=== PATIENT | female | born 1945 | race Caucasian/White ===

== ENCOUNTER 2016-10-01 18:36 | Emergency (ER) | payer MEDICARE, OTHER ==
[~2016-10-01] VITALS: Ht 160 cm; Wt 70.0 kg
[~2016-10-01 18:36] MED LIST: CALC-587 PO; DIPH25CA84 PO; FISH1CAP59 PO; FLUT16SP12 EA NOSTRIL; GLUC100015 PO; LEVO88TA41 PO; MULT-798 PO; SIMV20TA89 PO; VIT1CAPS21 PO
[2016-10-01 18:46] VITALS: Ht 160 cm; Wt 70.0 kg
--- NOTE | 2016-10-01 19:23 | NUR ---
PROVIDER DR VIZCARRA IN TO SEE PATIENT.
[2016-10-01 19:25] LABS: BASOPHILS % (AUTO) 0.5 % (0-2); EOSINOPHILS % (AUTO) 0.2 % (0-4); HCT - HEMATOCRIT 42.2 % (36-46); HGB - HEMOGLOBIN 14.2 GM/DL (12-16); IMMATURE GRANULOCYTE # (AUTO) 0.02 T/MM3 (0.00-0.03); IMMATURE GRANULOCYTE % (AUTO) 0.3 % (0.0-0.5); LYMPHOCYTES # (AUTO) 2.2 T/MM3 (1-4.8); LYMPHOCYTES % (AUTO) 33.6 % (23-45); MEAN CORPUSCULAR HGB 31.3 UUG (26-34); MEAN CORPUSCULAR HGB CONC(MCHC 33.6 GM/DL (31-37); MEAN CORPUSCULAR VOLUME 93.2 UM3 (80-100); MONOCYTES # (AUTO) 0.4 T/MM3 (0-0.8); NEUTROPHILS #(AUTO)-ABSOLUTE 3.9 T/MM3 (1.8-7.7); NEUTROPHILS % (AUTO) 59.4 % (33-66); RED BLOOD COUNT 4.53 M/MM3 (4.00-5.20); WBC - WHITE BLOOD COUNT 6.5 T/MM3 (4.5-11.0)
--- NOTE | 2016-10-01 19:28 | NUR ---
ORGANIC EXTRACTIONS TECHNICIAN IN ROOM TO DRAW BLOOD.
[2016-10-01] MEDS ORDERED: CALC-191 PO (19:30)
--- NOTE | 2016-10-01 19:31 | ERPDOC ---
Departure Disposition Decision Date: Oct 01, 2016 Disposition Decision Time: 20:49 Disposition: 01 DISCHARGED HOME, SELF-CARE Impression Impression Impression: Primary Impression: Exertional dyspnea Severity: Severe Condition: Improved Seen By: Physician only Referrals: MAXIMINO ESCUDERO MD (Family) Patient Instructions: Dyspnea (ED) Problems/Meds/Labs Reviewed?: Yes Medications reviewed and manag: Yes Additional Instructions: See Dr. Sanam Ayala, call first thing in the morning for appointment to arrange cardiac consultation Follow up care ordered?: Yes Mental Status: Alert HPI - Dyspnea General Chief Complaint: Dyspnea/Respdistress Stated Complaint: SHORTNESS OF AIR Time Seen by Provider: 19:19 Source: patient, family, RN/MD Exam Limitations: no limitations HPI - Dyspnea Initial Comments Patient was sent by Dr. Marion's office for evaluation of worsening exertional dyspnea. For the past year the patient has noticed when she sings she sometimes gets short of breath. She noticed it more over the past week, in the past 24-30 scours the patient has had significant exertional dyspnea with any activity even standing up in the kitchen. At the office today, the patient was asymptomatic at rest, with normal vital signs. However when the patient was walked and O2 saturations were monitored, the patient dropped into the low 80s with significant dyspnea even walking the length of one hallway. Patient has no history of CHF, coronary disease or [place], pulmonary embolism, T, cancer, diabetes, or any cardiac/pulmonary disease process that she knows of. Occurred At: home Onset/Timing: Rapid, Gradual Severity: moderate Activities at Onset: activity Prior Episodes/Possible Cause: no prior episodes Associated Symptoms: shortness of breath, DENIES: chest pain, cough, diaphoresis, fever/chills, headaches, loss of appetite, malaise, nausea/vomiting , rash, seizure, syncope, weakness Aspirin Treatment Today: unknown Hx of Similar Symptoms: Yes Allergies: Coded Allergies: No Known Allergies (Unverified , 10/01/16) Past History Past Medical History Pt denies signifigant PMH Surgical History Denies Surgeries Vaccines Hx Influenza Vaccination: Yes (FALL 2012) Hx Pneumococcal Vaccination: No Social History Smoking Status: Never smoker Does patient use chewing tobac: No Second Hand Exposure: No Substance Use Type: does not use Record Review Pertinent history updated: Yes Review of Systems Constitutional Constitutional: DENIES: appetite decrease, appetite increase, chills, dizziness , fever, weakness ENMT Ears: DENIES: pain Hearing: DENIES: hearing loss, tinnitus Balance: DENIES: vertigo Mouth/Throat: DENIES: change in swallowing, change in voice, hoarsness, painful swallowing, sore throat Cardiovascular Cardiac: DENIES: chest pain, dyspnea on exertion Rhythm/Rate: DENIES: irregular beat, palpitations, tachycardia Vascular: DENIES: pedal edema Pulmonary Respiratory: dyspnea, DENIES: cough, pleuritic chest pain GI Upper Abdomen: DENIES: dysphagia, heartburn/indigestion, nausea, pain, vomiting Lower Abdomen: DENIES: blood in stool, constipation, diarrhea, pain General: DENIES: burning, dysuria, frequency, pain, urgency Musculoskeletal General: DENIES: cramps, joint pain, joint swelling, pain, weakness Integumentary Skin: DENIES: rash, sores Neurological General: DENIES: headache, numbness, tingling, vertigo, weakness Psychiatric Psychiatric: DENIES: anxiety, depression, nervousness Physical Exam General General Nourishment: well nourished, well developed, appears stated age, no acute distress General Body Habitus: well groomed Vitals and Pain First Documented Vital Signs Date Time Temp Pulse Resp B/P Pulse Ox O2 Delivery O2 Flow Rate FiO2 10/01/16 18:46 97.0 72 16 171/74 97 Room Air Weight: Kilograms: Height (feet): Height (inches): Triage Pain Scale: RN VS reviewed by Provider: Yes Normal Exams: Head: Normocephalic w/o trauma Eyes: Pupils are PERRLA w/ EOMI, No scleral icterus, irritation, or foreign bodies noted ENMT: No facial trauma, nasal exudates, pharyngeal erythema, or exudates are noted Neck: Full range of motion, without adenopathy, JVD, bruits or thyromegaly Chest/Resp: Clear all kerr, with good airflow, and symmetry bilaterally CV: Regular rate and rhythm, without murmur or gallop, Pulses 2+ all extremities, capillary refill, <2 seconds all ext., no pedal edema noted Abdomen: Bowel sounds positive, soft, non-tender, non-distended, no hepatosplenomegaly, masses or bruits noted Lymphatic: No lymphadenopathy, or lymphedema noted Musculoskeletal: No tenderness, or deformity noted, good range of motion, all extremities Integumentary: No rashes, hives, or bruising noted, hair and nails, without abnormality Neurologic: Patient is alert, and oriented, cranial nerves, motor/sensory/ cerebellar, exams w/o gross deficits, to observation Psychiatric: Patient exhibits, appropriate attention, emotion and affect Progress Results/Orders Orders Procedure Category Date Status Time Iv Lock (Ed Only) EDM 10/01/16 Transmitted 19:05 Cbc W/Auto LAB 10/01/16 Complete Diff-Reflex Manual Cmp - Comprehensive LAB 10/01/16 Complete Metabolic Cta Pulmonary Emboli CT 10/01/16 Taken EKG EKG 10/01/16 Taken Troponin I W LAB 10/01/16 Complete Hemolysis Index Probnp LAB 10/01/16 Complete 19:05 Iohexol (Omnipaque) PHA 10/01/16 Complete 19:52 Normal Saline (Ns) PHA 10/01/16 Complete 19:52 Saline Flush (Iv PHA 10/01/16 Complete Flush) 19:52 Lab Results Laboratory Tests Test 10/01/16 19:19 White Blood Count 6.5T/MM3 Red Blood Count 4.53M/MM3 Hemoglobin 14.2GM/DL Hematocrit 42.2% Mean Corpuscular Volume 93.2UM3 Mean Corpuscular Hemoglobin 31.3UUG Mean Corpuscular Hemoglobin Concent 33.6GM/DL RDW Standard Deviation 46.5FL Platelet Count 242T/MM3 Mean Platelet Volume 11.0UM3 Immature Granulocyte % (Auto) 0.3% Neutrophils (%) (Auto) 59.4% Lymphocytes (%) (Auto) 33.6% Monocytes (%) (Auto) 6.0% Eosinophils (%) (Auto) 0.2% Basophils (%) (Auto) 0.5% Absolute Immature Granulocyte (auto 0.02T/MM3 Absolute Neutrophils (auto) 3.9T/MM3 Absolute Lymphocytes (auto) 2.2T/MM3 Absolute Monocytes (auto) 0.4T/MM3 Absolute Eosinophils (auto) 0.0T/MM3 Absolute Basophils (auto) 0.0T/MM3 Turbidity < 20 Sodium Level 147MEQ/L Potassium Level 4.0MEQ/L Chloride Level 105MEQ/L Carbon Dioxide Level 26MEQ/L Anion Gap 16MEQ/L Blood Urea Nitrogen 13.0MG/DL Creatinine 0.8MG/DL Glomerular Filtration Rate Calc 71 BUN/Creatinine Ratio 16RATIO Glucose Level 92MG/DL Calculated Osmolality 282MOSM/KG Calcium Level 10.0MG/DL Total Bilirubin 0.70MG/DL Icterus Index < 2 Aspartate Amino Transf (AST/SGOT) 34U/L Alanine Aminotransferase (ALT/SGPT) 36U/L Alkaline Phosphatase 84U/L Troponin I < 0.012ng/ml YW-Dev-W-Type Natriuretic Peptide 94PG/ML Total Protein 8.5G/DL Albumin 4.6G/DL Globulin 3.9G/DL Albumin/Globulin Ratio 1.2RATIO Chemistry Specimen Hemolysis < 15 Medications Current ED Medications Iohexol 1 bottle 1 bottle STK-MED ONCE .ROUTE ; Start 10/01/16 at 19:52; Stop at 19:53; Status DC Sodium Chloride (NS) 100 ml @ As Directed STK-MED ONCE .ROUTE ; Start 10/01/16 at 19:52; Stop 10/01/16 at 19:53; Status DC Sodium Chloride (Iv Flush) 10 ml STK-MED ONCE .ROUTE ; Start 10/01/16 at 19:52; Stop 10/01/16 at 19:53; Status DC Progress Progress EKG - normal sinus rhythm without ischemia, ectopy, or infarction Troponin - normal ProBNP - normal CBC - normal CMP - normal CT chest angio - normal, no evidence of pulmonary embolism, no effusion, no consolidations, no mass. Patient is dismissed to follow-up with her primary care physician tomorrow for probable cardiac consultation ROBERTO VIZCARRA MD Oct 01, 2016 19:31
[2016-10-01] MEDS ORDERED: ASPI-557 PO (19:32)
[2016-10-01 19:47] LABS: ALBUMIN 4.6 G/DL (3.5-5.0); ALBUMIN/GLOBULIN RATIO 1.2 RATIO (1.1-2.2); ALKALINE PHOSPHATASE 84 U/L (38-126); ALT (SGPT) 36 U/L (9-52); ANION GAP 16 MEQ/L (5-15); AST (SGOT) 34 U/L (14-36); BUN/CREATININE RATIO 16 RATIO (6-26); CHLORIDE 105 MEQ/L (98-107); CO2 - CARBON DIOXIDE 26 MEQ/L (22-30); CREATININE 0.8 MG/DL (0.7-1.2); GLOMERULAR FILTRATION RATE 71; GLUCOSE 92 MG/DL (65-110); SODIUM 147 MEQ/L (134-144); TOTAL PROTEIN 8.5 G/DL (6.3-8.2)
[2016-10-01] MEDS ORDERED: NORMAL SALINE 100 ML ONE (19:52)
[2016-10-01] MEDS ORDERED: SALINE FLUSH 10ml SYRINGE ONE (19:52)
[2016-10-01] MEDS ORDERED: IOHEXOL 350 MG/ML 75ml INJECTION ONE (19:52)
--- NOTE | 2016-10-01 19:59 | NUR ---
TO CT PER CART.
--- NOTE | 2016-10-01 20:52 | NUR ---
PROVIDER DR VIZCARRA IN TO SEE PATIENT.
[2016-10-01 21:07] VITALS: BP 121/79; PULSE 72; RESP 16; TEMP 98; O2SAT 94
--- NOTE | 2016-10-02 08:03 | DI ---
Indication: ITS.REASON: exertional dyspnea with hypoxemia PROCEDURE: CTA PULMONARY EMBOLI: Encounter: Initial Comparison: None Technique: Axial CT pulmonary angiographic phase images were performed through the chest after the administration of intravenous contrast. Coronal and Sagittal MIP reconstructed images were created and reviewed. Automated Exposure Control and Iterative Reconstruction dose reducing techniques were utilized. Contrast: Omnipaque 350 62 mL Findings: Pulmonary arteries: Exam is diagnostic to the subsegmental pulmonary arterial level. No filling defects identified to suggest a pulmonary embolus. Other findings: Lungs are clear. No pleural effusion or pneumothorax. Central airways are patent. Coronary artery calcifications. No axillary or mediastinal adenopathy. Heart size is normal. No pericardial effusion. Upper abdomen shows no acute findings. Impression: No pulmonary embolus or acute disease process seen. There is a preliminary report by [employer]. .
== END 2016-10-01 21:01 | disposition home or self-care (01) ==
LOC: ED 18:36
DX: R06.09 Other forms of dyspnea (principal)
CPT/HCPCS: 71275; 80053; 83880; 84484; 85025; 93005; 99284; J7050; Q9967